=== PATIENT | female | born 2000 | race Caucasian/White ===

== ENCOUNTER 2019-02-25 07:15 | Day surgery (SDC) | payer OTHER ==
[2019-02-15 10:50] VITALS: BMI 29.4
[2019-02-25] MEDS ORDERED: MIDAZOLAM HCL 2 MG/2 ML SINGLE DOSE VIAL ONE (09:24)
[2019-02-25] MEDS ORDERED: fentaNYL CITRATE 250 MCG/5 ML VIAL ONE ×2 (09:25→11:19)
[2019-02-25] MEDS ORDERED: ROCURONIUM BROMIDE 50 MG/5 ML VIAL ONE (09:54)
[2019-02-25] MEDS ORDERED: PROPOFOL 20 ML ONE (09:54)
[2019-02-25] MEDS ORDERED: LIDOCAINE HCL/PF 2% SDV 5ML VIAL ONE (09:58)
[2019-02-25] MEDS ORDERED: DEXAMETHASONE SOD PHOSPHATE 4 MG/1 ML VIAL ONE (10:16)
[2019-02-25] MEDS ORDERED: ONDANSETRON 4 MG/2 ML VIAL ONE ×2 (10:16→14:03)
[2019-02-25] MEDS ORDERED: ceFAZolin SODIUM 1 GM VIAL ONE (10:17)
[2019-02-25] MEDS ORDERED: ceFAZolin SODIUM 1 GM VIAL IVPB ONE (10:46)
[2019-02-25] MEDS ORDERED: ONDANSETRON 4 MG/2 ML VIAL IVPUSH PRN (14:52)
[2019-02-25] MEDS ORDERED: oxyCODONE HCL 5 MG TABLET PO PRN ×3 (14:52→14:56)
[2019-02-25] MEDS ORDERED: ACETAMINOPHEN INJECTION 100 ML IVPB ONE (14:55)
[2019-02-25] MEDS ORDERED: ONDANSETRON 4 MG/2 ML VIAL IVPB PRN (14:56)
--- NOTE | 2019-02-25 14:58 | OP ---
Operative Note - Note: Operative Date: 02/25/19 Pre-Operative Diagnosis: bilateral macromastia Operation: bilateral breast reduction with excision of left supranumerary nipple Post-Operative Diagnosis: Same as Pre-op Surgeon: Kelvin Pang Dry House Tender: Lalitha Fairchild Anesthesia: General Operative Report Dictated: Yes
[2019-02-25] MEDS ORDERED: LACTATED RINGERS SOLUTION 1,000 ML IV SCH ×2 (15:00)
[2019-02-25] MEDS ORDERED: oxyCODONE HCL 5 MG TABLET ONE ×2 (16:27→16:56)
[2019-02-25 17:46] VITALS: PULSE 75; TEMP 98
[2019-02-25 17:51] VITALS: BP 118/71
--- NOTE | 2019-02-25 22:42 | OP ---
DATE OF OPERATION: 02/25/2019 TITLE OF PROCEDURE: Bilateral reduction mammoplasty with additional left excision of supernumerary nipple. ATTENDING SURGEON: Kelvin Pang MD PROVIDER RELATIONS CONSULTANT: JOSE RAMON Mart SECOND METAL FLOW COORDINATOR: JOSE RAMON Dueñas PREOPERATIVE DIAGNOSIS: Bilateral symptomatic macromastia and left supernumerary nipple. Patient is seen in the holding area. She is given JAYASHREE hose and sequential compression stockings. She is marked for an inferior pedicle, Fox-type pattern breast reduction. The nipples are sited at 22.5 cm from the sternal notch bilaterally. She is awake and aware of all incisions and resulting scars. She is brought to the operating room, placed in a supine position. Position is carefully checked and padded by surgical and anesthesia teams. After anesthesia is given, she is given a gram of Ancef. A Huang catheter is placed, removed at the end of the procedure. She is then prepped and draped in standard surgical fashion. A timeout is called. Patient, procedure, sites, and sides are verified. At this point, the breasts are placed on a tourniquet. Prior to breasts being placed on a tourniquet, a 42-mm [employer] cutter areolar marker is used and marked. The 10-cm-width inferior pedicle is marked, and pressure was then placed on the tourniquet. The pedicle was de-epithelialized with the exception of the nipple-areolar complex. Tourniquets were then removed, and attention first given to the left breast where skin flaps are elevated superiorly, medially, and laterally, leaving adequate thickness to the flaps down to the level of the chest wall. The superior flap is undermined to accommodate the size of the inferior pedicle. Pedicle is then developed by excising tissue in between the pedicle and the skin flaps. Hemostasis then meticulously achieved. On the patient's left, the full resection weight is 707 g. Skin is tailor tacked with jean pierre, and attention is then directed toward the right side, where a mirror-image procedure is performed. The resection weight on the right side is 680 g. The patient is brought to a seated upright position to assess for symmetry which is excellent in size, shape, and nipple-areolar position. At this point, hemostasis was meticulously achieved on both sides. Copious irrigation with normal saline was performed. The closure is then performed with a half-buried, mattress 2-0 Prolene suture at the inverted T point; a series of interrupted, buried, deep dermal 3-0 Monocryl sutures on the vertical and horizontal limbs as well as the nipple-areola and the keyhole pattern. Nipple-areolas are pink and viable at the point of this procedure. The medial and lateral pillars are secured to one another breast parenchyma with a series of interrupted 3-0 Monocryl suture. Skin of the vertical limb is then closed with a series of interrupted, buried, deep dermal 3-0 Monocryl suture. The vertical and horizontal limbs are closed with a running, subcuticular 3-0 Monocryl suture, and the nipple-areola is closed with a running, 4-0 subcuticular Monocryl suture. Size 10 flat DOUG drains are brought out through the lateral extents of the incisions, secured with a 2-0 silk drain sutures. All tissues appear viable at the end of the procedure. Drains are functioning, placed to suction. Patient is awoken from anesthesia. Dressing is applied with Steri-Strips, 4 x 4, ABD gauze, and a surgical bra. She is transferred to Recovery without complication. Please note that in addition to the breast reduction as performed, a separate excision of a left-sided supernumerary inframammary nipple is performed, and this is closed and incorporated into the closure of the left-sided inframammary transverse incision. Delmer [id number]
--- NOTE | 2019-02-26 15:37 | SURG ---
Surgery Advertising Job Titles Note Advertising Job Titles: Lalitha Fairchild PA-C Date of Service: 02/25/19 Diagnosis: bilateral macromastia Procedure: bilateral breast reduction with excision of left supranumerary nipple I was present for the entirety of the operative procedure. For further detail, please refer to operative report. Visit type - Case Type Case Type: Scheduled - Emergency Emergency Visit: No - New patient This patient is new to me today: Yes Date on this admission: 02/25/19
--- NOTE | 2019-02-28 14:21 | PATH ---
Surgical Pathology Report Patient Name: TOD LEIGH [facility]. Rec. #: [id number] /Age/Gender: 2000 (Age: 18) / F Account: [id number] Location: [facility] Taken: 02/25/2019 Received: 02/25/2019 Reported: 02/28/2019 Physicians: Kelvin Pang Specimen(s) Received A: LEFT BREAST TISSUE B: RIGHT BREAST TISSUE Clinical History Macromastia Final Diagnosis A. BREAST TISSUE, LEFT, REDUCTION: BENIGN BREAST TISSUE. SKIN WITH NO PATHOLOGIC FINDINGS. B. BREAST, TISSUE, RIGHT, REDUCTION: BENIGN BREAST TISSUE. SKIN WITH NO PATHOLOGIC FINDINGS. Electronically Signed Ada Dickerson M.D. Gross Description A. Received in formalin labeled "left breast tissue," is a 731 g, 23.0 x 11.5 x 6.8 cm aggregate of multiple unoriented portions of fibroadipose tissue and garcia, unremarkable skin. Sectioning reveals abundant dense, white, focally firm fibrous tissue. No definitive mass is identified. Event Staff sections are submitted in 4 cassettes. B. Received in formalin labeled "right breast tissue," 705 g, 26.0 x 10.5 x 7.5 cm aggregate of multiple unoriented portions of fibroadipose tissue and garcia, unremarkable skin. Sectioning reveals abundant dense, white, focally firm fibrous tissue. No definitive mass is identified. Event Staff sections are submitted in 4 cassettes. DL/02/26/2019 saudi/02/26/2019
== END 2019-02-25 17:25 | disposition home or self-care (01) ==
LOC: FASU 07:15
PROVIDERS: ATTEND Plastic Surgery
PROC: 0HBU0ZX Excision of Left Breast, Open Approach, Diagnostic (ICD-10-PCS; 2019-02-25)
PROC: 0HBV0ZZ Excision of Bilateral Breast, Open Approach (ICD-10-PCS; principal; 2019-02-25 09:00)
DX: N62 Hypertrophy of breast (principal); Q83.3 Accessory nipple
CPT/HCPCS: 84703; 88305-TC; 94760; J0131